=== PATIENT | female | born 1990 | race African-American/Black ===

== ENCOUNTER 2020-07-10 13:13 | Observation (INO) | payer MEDICAID ==
[~2020-07-10] VITALS: Ht 157.5 cm; Wt 68.0 kg
== END 2020-07-10 17:40 | disposition home or self-care (01) ==
LOC: 8 EST LDRP 13:13 → 8 EST A/PP 13:21
PROVIDERS: ADMIT Obstetrics & Gynecology; ATTEND Obstetrics & Gynecology
DX: O62.9 Abnormality of forces of labor, unspecified (principal); Z3A.33 33 weeks gestation of pregnancy
CPT/HCPCS: 59025; 76805; 76818; G0378; 99281

== ENCOUNTER 2020-08-27 20:24 | Inpatient (IN) | payer MEDICAID ==
[~2020-08-27] VITALS: Ht 157.5 cm; Wt 73.5 kg
[2020-08-27] MEDS ORDERED: METHYLERGONOVINE MALEATE 0.2 MG/ML IM PRN (21:15)
[2020-08-27] MEDS ORDERED: LIDOCAINE HCL 1% 20ML VIAL (Pyxis) INJ INFIL SCH (21:15)
[2020-08-27] MEDS ORDERED: NALOXONE HCL 0.4 MG/ML 1ML VIAL IM PRN (21:15)
[2020-08-27] MEDS ORDERED: DEXT 5%/LR + PITOCIN 20UNITS/L 1,000 ML IV SCH (21:15)
[2020-08-27] MEDS ORDERED: CARBOPROST TROMETHAMINE 250 MCG/ML AMPUL IM PRN (21:15)
[2020-08-27] MEDS ORDERED: PNV1TABL50 PO (21:38)
[2020-08-27] MEDS: LACTATED RINGERS 1,000 ML IV SCH ×2 (21:46→22:19)
[2020-08-27 21:58] LABS: BASOPHILS % 0.3 % (0.0-2.0); CLARITY URINE CLEAR (CLEAR); COLOR URINE YELLOW (YELLOW); EOSINOPHILS % 0.2 % (0.0-5.0); HEMATOCRIT. 35.5 % (36.0-48.0); HEMOGLOBIN. 11.7 g/dL (12.0-16.0); KETONES URINE 3+ (NEGATIVE); LEUKOCYTE ESTERASE URINE 1+ (NEGATIVE); LYMPHOCYTES % 8.3 % (20.0-50.0); MEAN CORPUSCULAR HEMOGLOBIN 28.2 pg (28.0-32.0); MEAN CORPUSCULAR VOLUME 85.2 fL (81.0-99.0); MEAN PLATELET VOLUME 9.3 fl (7.4-10.4); MONOCYTES % 4.7 % (2.0-8.0); NEUTROPHILS % 86.5 % (40.0-76.0); NITRITE URINE NEGATIVE (NEGATIVE); OCCULT BLOOD URINE NEGATIVE (NEGATIVE); PH URINE 6.5 (4.5-8.0); PLATELET 178 x1000/uL (130-400); PROTEIN URINE NEGATIVE (NEGATIVE); RED BLOOD CELL COUNT 4.17 mill/uL (4.2-5.4); RED CELL DISTRIBUTION WIDTH 14.5 % (11.6-14.6); SPECIFIC GRAVITY URINE 1.015 (1.005-1.030); UROBILINOGEN URINE 0.2 E.U./dL (0.2-1.0)
[2020-08-27] MEDS ORDERED: ROPIVACAINE HCL/PF EPIDURAL 200 ML EPI SCH (22:00)
[2020-08-27] MEDS ORDERED: INFLUENZA VACCINE 05/PF 0.5 ML VIAL IM ONE (22:00)
[2020-08-27] MEDS ORDERED: PENICILLIN G POTASSIUM 5 MMU in DEXT 5% WATER 100 ML IV SCH (22:00)
[2020-08-27 22:10] LABS: INR 0.9; PARTIAL THROMBOPLASTIN TIME 30.8 sec (23.4-31.0); PROTHROMBIN TIME 9.9 sec (9.6-11.0)
[2020-08-27 22:24] LABS: CANNABINOID URINE SCREEN NEGATIVE (NEGATIVE); PHENCYCLIDINE URINE SCREEN NEGATIVE (NEGATIVE)
[2020-08-27 22:25] LABS: *AMPHETAMINES SCREEN URINE NEGATIVE (NEGATIVE); *BARBITURATES SCREEN URINE NEGATIVE (NEGATIVE); *BENZODIAZEPINES SCREEN URINE NEGATIVE (NEGATIVE); *COCAINE SCREEN URINE NEGATIVE (NEGATIVE); METHADONE URINE SCREEN NEGATIVE (NEGATIVE); OPIATES URINE SCREEN NEGATIVE (NEGATIVE)
[2020-08-27 22:46] LABS: HEPATITIS B SURFACE ANTIGEN NEGATIVE
[2020-08-28] MEDS ORDERED: MORPHINE SULFATE/PF 1MG/ML 10ML AMP ONE (01:21)
[2020-08-28] MEDS ORDERED: FENTANYL CITRATE/PF 50MCG/ML 2ML VIAL ONE (01:21)
[2020-08-28] MEDS ORDERED: MIDAZOLAM HCL 2 MG/2 ML VIAL ONE (01:34)
[2020-08-28] MEDS ORDERED: OXYTOCIN 10 UNITS/ML 1ML ONE ×2 (01:35→01:50)
[2020-08-28] MEDS ORDERED: CEFAZOLIN SODIUM 1000MG/VIAL ONE (01:36)
[2020-08-28] MEDS ORDERED: DIPHENHYDRAMINE 50MG/ML VIAL ONE (01:48)
[2020-08-28] MEDS ORDERED: KETOROLAC 60MG/2ML VIAL IM ONE (01:48)
[2020-08-28] MEDS ORDERED: NALOXONE HCL 0.4 MG/ML 1ML VIAL IV PRN (02:00)
[2020-08-28] MEDS ORDERED: BUTORPHANOL TARTRATE 2 MG/ML VIAL IV PRN ×2 (02:00→06:30)
[2020-08-28] MEDS ORDERED: PENICILLIN G POTASSIUM 2.5 MMU in DEXTROSE 5% WATER 50 ML IV SCH (02:00)
[2020-08-28] MEDS ORDERED: LIDOCAINE HCL 2%/EPINEPHRINE 1:100,000 20 ML VIAL INFIL ONE (02:00)
[2020-08-28] MEDS ORDERED: DIPHENHYDRAMINE 50MG/ML VIAL IV PRN (02:00)
[2020-08-28] MEDS ORDERED: IBUPROFEN 400MG TABLET PO PRN (02:15)
[2020-08-28] MEDS ORDERED: KETOROLAC 30MG/ML VIAL IV PRN (02:15)
[2020-08-28] MEDS ORDERED: DIPHENHYDRAMINE 25MG CAPSULE PO PRN (02:15)
[2020-08-28] MEDS ORDERED: BISACODYL 10MG SUPP PR PRN (02:15)
[2020-08-28] MEDS ORDERED: HYDROCODONE/ACETAMINOPHEN 5/325MG TABLET PO PRN (02:15)
[2020-08-28] MEDS ORDERED: HEMORRHOIDAL SUPP PR PRN (02:15)
[2020-08-28] MEDS ORDERED: ONDANSETRON HCL 4MG/2ML INJ IV PRN (02:15)
[2020-08-28] MEDS: DEXT 5%/LR + PITOCIN 20UNITS/L 1,000 ML IV SCH ×2 (03:08→10:13)
[2020-08-28] MEDS ORDERED: MAGNESIUM 4 G PREMIX 100 ML IV SCH (04:00)
[2020-08-28] MEDS: MAGNESIUM 20 G PREMIX (L & D) 500 ML IV SCH ×2 (04:26→13:33)
[2020-08-28 04:52] LABS: HEMATOCRIT. 34.1 % (36.0-48.0); HEMOGLOBIN. 11.2 g/dL (12.0-16.0); MEAN CORPUSCULAR HEMOGLOBIN 28.2 pg (28.0-32.0); MEAN CORPUSCULAR VOLUME 85.7 fL (81.0-99.0); MEAN PLATELET VOLUME 9.3 fl (7.4-10.4); PLATELET 181 x1000/uL (130-400); RED BLOOD CELL COUNT 3.98 mill/uL (4.2-5.4); RED CELL DISTRIBUTION WIDTH 15.1 % (11.6-14.6)
[2020-08-28 05:01] LABS: CHLORIDE 108 mEq/L (98-107)
[2020-08-28 05:04] LABS: PARTIAL THROMBOPLASTIN TIME 33.3 sec (23.4-31.0); PROTHROMBIN TIME 10.1 sec (9.6-11.0)
[2020-08-28 05:30] LABS: PLATELET ESTIMATE NORMAL
[2020-08-28 07:30] VITALS: BP 137/81
[2020-08-28] MEDS: KETOROLAC 30MG/ML VIAL IV SCH ×3 (10:11→23:06)
[2020-08-28] MEDS: SIMETHICONE 80MG TABLET CHEW PO SCH ×3 (10:12→21:08)
[2020-08-28 10:30] VITALS: BP 135/83
[2020-08-28 13:30] VITALS: BP 127/73
[2020-08-28 16:38] VITALS: BP 130/80
[2020-08-28 19:30] VITALS: BP 130/75
[2020-08-28] MEDS: DOCUSATE SODIUM 100MG CAPSULE PO SCH (21:08)
[2020-08-29] VITALS: BP 141/85
[2020-08-29 04:00] VITALS: BP 137/86
[2020-08-29] MEDS: IBUPROFEN 800MG TABLET PO PRN ×2 (07:18→21:14)
[2020-08-29] MEDS: FERROUS SULFATE 325MG TABLET PO SCH ×4 (07:30→21:11)
[2020-08-29] MEDS: SIMETHICONE 80MG TABLET CHEW PO SCH ×5 (08:00→21:11)
[2020-08-29 08:38] VITALS: BP 120/76
[2020-08-29] MEDS: PRENATAL VIT/FE FUMARATE/FA TABLET PO SCH (13:09)
[2020-08-29 16:00] VITALS: BP 136/72
[2020-08-29 20:00] VITALS: BP 133/84
[2020-08-29] MEDS: DOCUSATE SODIUM 100MG CAPSULE PO SCH (21:11)
[2020-08-29] MEDS: MAGNESIUM HYDROXIDE 400MG/5ML 30ML UDC PO PRN (21:11)
[2020-08-29] MEDS: LANOLIN OINT 7GM TUBE TOP PRN (21:11)
[2020-08-30 04:00] VITALS: BP 117/74
[2020-08-30] MEDS ORDERED: KETOROLAC 60MG/2ML VIAL IM NR (07:30)
[2020-08-30] MEDS: MAGNESIUM HYDROXIDE 400MG/5ML 30ML UDC PO PRN ×2 (08:22→19:08)
[2020-08-30] MEDS: SIMETHICONE 80MG TABLET CHEW PO SCH ×3 (08:23→21:52)
[2020-08-30] MEDS: PRENATAL VIT/FE FUMARATE/FA TABLET PO SCH (08:23)
[2020-08-30] MEDS: FERROUS SULFATE 325MG TABLET PO SCH ×3 (08:23→19:08)
[2020-08-30 09:00] VITALS: BP 150/81
[2020-08-30 14:30] VITALS: BP 134/82
[2020-08-30 20:00] VITALS: BP 135/81
[2020-08-30] MEDS: DOCUSATE SODIUM 100MG CAPSULE PO SCH (21:51)
[2020-08-30] MEDS: IBUPROFEN 800MG TABLET PO PRN (21:52)
[2020-08-31] MEDS ORDERED: IBUP-2030 MT (01:03)
[2020-08-31 04:30] VITALS: BP 113/70
[2020-08-31] MEDS: PRENATAL VIT/FE FUMARATE/FA TABLET PO SCH (08:47)
[2020-08-31] MEDS: LANOLIN OINT 7GM TUBE TOP PRN (08:47)
[2020-08-31] MEDS: FERROUS SULFATE 325MG TABLET PO SCH (08:48)
[2020-08-31] MEDS: SIMETHICONE 80MG TABLET CHEW PO SCH (08:48)
[2020-08-31] MEDS: IBUPROFEN 800MG TABLET PO PRN (08:48)
[2020-08-31 10:00] VITALS: BP 118/77
== END 2020-08-31 12:00 | disposition home or self-care (01) | DRG 540 ==
LOC: OBSVTOIN 20:24 → 8 EST LDRP 20:24 → 8EST 08-28 07:30
PROVIDERS: ADMIT Obstetrics & Gynecology; ATTEND Obstetrics & Gynecology
PROC: 10D00Z1 Extraction of Products of Conception, Low, Open Approach (ICD-10-PCS; principal; 2020-08-28)
DX: O76 Abnormality in fetal heart rate and rhythm complicating labor and delivery (principal); O48.0 Post-term pregnancy; D62 Acute posthemorrhagic anemia; O99.824 Streptococcus B carrier state complicating childbirth; O77.0 Labor and delivery complicated by meconium in amniotic fluid; G56.00 Carpal tunnel syndrome, unspecified upper limb; O75.89 Other specified complications of labor and delivery; O99.02 Anemia complicating childbirth; O66.5 Attempted application of vacuum extractor and forceps; Z3A.40 40 weeks gestation of pregnancy; Z37.0 Single live birth
CPT/HCPCS: 36415; 80053; 80305; 81003; 83735; 84550; 85025; 85384; 86592; 86703; 86762; 86850; 86900; 87340; 88307; 90686; 99281; G0378; J0595; J0690; J1200; J1885; J2250; J2274; J2405; J2540; J2590; J2795; J3010; J3475; J3490; J7060

== ENCOUNTER 2022-11-26 09:27 | Emergency (ER) | payer MEDICAID ==
[~2022-11-26] VITALS: Ht 157.5 cm; Wt 66.0 kg
[~2022-11-26 09:27] MED LIST: IBUP-2030 MT; PNV1TABL50 PO
[2022-11-26 09:31] VITALS: BP 133/76
[2022-11-26] MEDS ORDERED: ACETAMINOPHEN 325MG TABLET PO ONE (10:00)
[2022-11-26] MEDS ORDERED: ALBUTEROL (0.5%) 2.5MG/0.5ML NEB HHN NR (11:00)
[2022-11-26] MEDS ORDERED: ACET-2708 MT (11:17)
[2022-11-26] MEDS ORDERED: ALBU6.7H3 INH (11:17)
== END 2022-11-26 12:31 | disposition home or self-care (01) ==
LOC: ER 09:27
DX: B34.9 Viral infection, unspecified (principal); R06.02 Shortness of breath; Z13.9 Encounter for screening, unspecified; Z20.822 Contact with and (suspected) exposure to COVID-19
CPT/HCPCS: 71045; 87426; 87804; 94640; 99284; C9803; Z7610